=== PATIENT | female | born 1965 | race Caucasian/White ===

== ENCOUNTER 2021-08-09 08:26 | Day surgery (SDC) | payer OTHER, SELFPAY ==
[2021-08-02 19:20] VITALS: BMI 22.9
[2021-08-09 09:13] VITALS: BP 113/63; PULSE 85; RESP 16; TEMP 36.3; O2SAT 98
--- NOTE | 2021-08-09 09:55 | HO.ANESPROP2 ---
HPI - Anesthesia Eval Consult details Narrative: 56 F for colonoscopy [facility] Past Medical History Medical History (Updated 08/02/21 @ 19:18 by Hannah Ramirez, RN) Anxiety Functional capacity: independent ambulation Family History Family history of problems with anesthesia: No Surgical History Surgical History (Updated 08/02/21 @ 19:20 by Hannah Ramirez RN) History of kidney surgery Previous back surgery History of Problems with Anesthesia: Yes (Ponv ) Social History Social History Patient Tobacco Use Status: Never used Tobacco Use of substances other than those prescribed or required for medical reasons: No Are you DNR?: No Advance Directives: No Advance Directives Information Provided: No Advance Directives on File: No Recently lost weight without trying: No Nutrition Risks: No Nutritional Risk Patient : No Meds Allergies Allergy/AdvReac Type Severity Reaction Status Date / Time codeine [CODEINE] Allergy Unknown HEADACHE Verified 08/09/21 10:01 peanut Allergy Rash Verified 08/09/21 10:01 Active Medications: Current Medications Sodium Biphosphate/Sodium Phosphate (Sodium Phosphate,[place]-Dibasic 133 Ml Enema) 133 ml WA ONCE PRN PRN Reason: Poor Colonoscopy Prep Results Home Medications Medication Instructions Recorded Confirmed Last Taken Type alprazolam 0.5 mg tablet 1 tab PO ONCE PRN 08/02/21 08/02/21 Unknown History escitalopram oxalate 20 mg tablet 1 tab PO DAILY 08/02/21 08/02/21 Unknown History Exam Exam Date and Time: August 09, 2021 0955 Height,Weight and Vital Signs: Height 5 ft 5 in Weight 62.596 kg Last Vital Signs Temp 97.4 F 08/09/21 09:13 Pulse 85 08/09/21 09:13 Resp 16 08/09/21 09:13 BP 113/63 08/09/21 09:13 Pulse Ox 98 08/09/21 09:13 Airway Mallampati Class: III TM Dist: >3cm Neck ROM: Full Loose/Missing/Broken Teeth: Yes (Fillings ) Heart: rrr Lungs: bl breath sounds Assessment and Plan Assessment Anesthesia Assessment: Anesthesia Plan Discussed Final Anesthetic Review Family History of Problems with Anesthesia: No History of Problems with Anesthesia: Yes (Ponv ) NPO: Yes ASA Class: II Final Preanesthetic Review: Meds/Allgs Chart Reviewed, Consent Obtained/Reviewed and Anes Risks/Benef Reviewed Patient Risk: Intermediate Procedure Risk: Intermediate Anesthetic Plan Anesthetic Plan: MAC: Disposition: Standard PACU
[2021-08-09] MEDS: Lactated Ringers 1,000 ML 80 ML IVCONT (10:01)
--- NOTE | 2021-08-09 10:50 | P.BOP_ITS ---
Brief Operative Note Date of Service: 08/09/21 Pre-op diagnosis: Screening Post-op diagnosis: other (Diverticulosis) Procedure: Colonoscopy to the cecum and TI with biopsies Surgeon: Mario Cordero Anesthesia: MAC Was an Phone Triage Specialist used for this Procedure?: No Estimated blood loss (mL): 2.0 Pathology: other (A. Biopsies from area of Hepatic Flexure) Condition: stable Disposition: PACU
[2021-08-09 10:51] VITALS: BP 98/59; PULSE 69; RESP 17; TEMP 36.3; O2SAT 99
[2021-08-09 11:06] VITALS: BP 105/63; PULSE 63; RESP 18; TEMP 36.3; O2SAT 98
--- NOTE | 2021-08-09 11:34 | OP_ITS ---
SURGEON: Mario Cordero MD INDICATIONS: The patient presents for evaluation of colorectal cancer screening. Full consent was obtained from her for this, including risks of bleeding and perforation. PREOPERATIVE DIAGNOSIS: Colorectal cancer screening. POSTOPERATIVE DIAGNOSIS: PROCEDURE PERFORMED: Colonoscopy to cecum and terminal ileum with biopsies. ESTIMATED BLOOD LOSS: COMPLICATIONS: ANESTHESIA: Monitored anesthesia care. ASSISTANTS: SPECIMENS: POSTOPERATIVE DIAGNOSES: Colorectal cancer screening, mild sigmoid diverticulosis, small internal hemorrhoids, some nodularity in the area of hepatic flexure, which was biopsied to rule out any component of polyp. DESCRIPTION OF PROCEDURE: The patient was placed in the left lateral decubitus position. The digital rectal exam revealed no abnormalities. The Olympus video pediatric colonoscope was entered into the rectum and advanced easily to the cecum. Once in the cecum, I did identify normal-appearing cecal pouch with appendiceal orifice and a normal-appearing ileocecal valve. The terminal ileum was cannulated and appeared normal. The scope was withdrawn back in the colon. The entire cecum and ileocecal valve appeared normal. The scope was slowly withdrawn assessing all mucosal surfaces carefully. Preparation was excellent. In the area of the hepatic flexure on a fold, was some minimal area of nodularity, which I suspect was basically normal, but biopsies were obtained to rule out any component of polyp. There is no mass nor ulceration. I did not visualize any other mucosal abnormalities, colitis, nor angiodysplasia. There was a mild amount of sigmoid diverticulosis. In the rectum, scope was retroflexed visualizing small internal hemorrhoids, but no other pathology. The rectal mucosa appeared normal. Scope was straightened and withdrawn from the patient. She tolerated the procedure well and was returned to recovery area in stable condition. IMPRESSION: 1. Questionable nodularity on mucosa near hepatic flexure, status post biopsy. 2. Diverticulosis. 3. Internal hemorrhoids. PLAN: The results of biopsy will be checked. Assuming this is normal tissue, I would then recommend a repeat colonoscopy in 10 years for further screening. She will otherwise see me on a p.r.n. basis. MD DEBI Martino/AMANDA / [phone]
== END 2021-08-09 11:40 | disposition home or self-care (01) ==
PROVIDERS: PCP Internal Medicine; Visit Provider Internal Medicine
PROC: 0DJD8ZZ Inspection of Lower Intestinal Tract, Via Natural or Artificial Opening Endoscopic (ICD-10-PCS; CPT 45378; principal; 2021-08-09 09:40)
DX: Z12.11 Encounter for screening for malignant neoplasm of colon (principal); K57.30 Diverticulosis of large intestine without perforation or abscess without bleeding; K64.8 Other hemorrhoids; F41.1 Generalized anxiety disorder; Z79.899 Other long term (current) drug therapy; Z98.890 Other specified postprocedural states
CPT/HCPCS: 45380; 88305; J2250

== ENCOUNTER 2023-03-16 02:42 | Emergency (ER) | payer OTHER, SELFPAY ==
[2023-03-16 03:05] VITALS: BP 122/66; PULSE 88; RESP 16; TEMP 38.3; O2SAT 100; BMI 22.5
[2023-03-16 03:34] VITALS: BP 113/53; PULSE 71; RESP 15; TEMP 37.9; O2SAT 98
--- NOTE | 2023-03-16 04:15 | ED.FEVER ---
HPI - Fever General Chief Complaint: Fever Stated Complaint: blood infection? Time Seen by Provider: 03/16/23 03:44 Source: patient Mode of arrival: ambulatory Limitations: no limitations History of Present Illness HPI Narrative: A 58-year-old female came in for evaluation of fever, chills, generalized body ache, watery eyes, joints pain. No sick contacts, no recent exposure to a sick contact, no recent travel. Patient had a history of UTI so and the blood infection was concerned. No dysuria, no frequency urination, no hematuria. Related Data Home Medications Medication Instructions Recorded Confirmed alprazolam 0.5 mg tablet 1 tab PO ONCE PRN anxiety 08/02/21 08/02/21 escitalopram oxalate 20 mg tablet 1 tab PO DAILY 08/02/21 08/02/21 Previous Rx's Medication Instructions Recorded nirmatrelvir 300 mg (150 mg See Rx Instructions PO .COMPLEX 03/16/23 x2)-ritonavir 100 mg tablet,dose #30 ea pack (Paxlovid) Allergies Allergy/AdvReac Type Severity Reaction Status Date / Time codeine [CODEINE] Allergy Unknown HEADACHE Verified 07/02/22 11:18 peanut Allergy Rash Verified 07/02/22 11:18 Review of Systems Review of Systems: All other systems are reviewed and are negative Constitutional: Reports as per HPI and Reports no additional constitutional complaints Eyes: Reports as per HPI and Reports no additional eye complaints Reports system reviewed and no additional complaints, except as documented Cardiovascular: Reports as per HPI and Reports no additional cardiovascular complaints Respiratory: Reports as per HPI and Reports no additional respiratory complaints Gastrointestinal: Reports as per HPI and Reports no additional gastrointestinal complaints Genitourinary: Reports no additional female genitourinary complaints Musculoskeletal: Reports no additional musculoskeletal complaints Skin/Breast: Reports system reviewed and no additional complaints, except as docu Psychiatric: Reports no additional psychiatric complaints Endocrine: Reports no additional endocrine complaints Hematologic/Lymphatic: Reports no additional hematologic/lymphatic complaints Allergic/Immunologic: Reports no additional allergic/immunologic complaints Reports system reviewed and no additional complaints, except as documented and Reports Abnormal speech present [facility] Past Medical History Medical History Anxiety Surgical History Previous back surgery History of kidney surgery Social History Social History Patient Tobacco Use Status: Never used Tobacco Smoked in Last 30 Days: No Use of substances other than those prescribed or required for medical reasons: No Advance Directives: No Advance Directives Information Provided: No Physical Exam Vital Signs: Vital Signs: Last Vital Signs Temp 100.3 F 03/16/23 03:34 Pulse 71 03/16/23 03:34 Resp 15 03/16/23 03:34 BP 113/53 L 03/16/23 03:34 Pulse Ox 98 03/16/23 03:34 O2 Del Method Room Air 03/16/23 03:34 BMI result Body Mass Index 22.5 Vital signs have been reviewed and appear to be correct. Blood pressure elevated. Heart rate normal. Respiratory rate normal. Temperature normal. Oxygen saturation normal. Appearance: Alert. Oriented X3. No acute distress. Head: Normal external exam. Normocephalic. Atraumatic. No Kruse signs noted. No raccoon eyes noted Eyes: PERRLA. EOMI. Conjunctiva and sclera normal. Eyelids normal. ENT: TM's Normal. Pharynx normal. Uvula midline. Moist mucous membranes. No trismus noted. No drooling noted. No muffled voice noted. Neck: Normal inspection. Neck supple. FROM. No adenopathy. Thyroid Normal. No meningeal signs. No neck mass noted. CVS: Normal heart rate and rhythm. Heart sound normal. No murmurs noted. Pulses normal throughout. Respiratory: No respiratory distress. Painless inspiration. Breath sounds normal. No wheezes/rales/rhonchi noted. Chest nontender. No accessory muscle usage noted or decreased air movement noted. Abdomen: Soft and nontender. Bowel sounds normal in all 4 quadrants. No distention noted. No organomegaly noted. No visible injury noted. Back: No CVA tenderness. Full range of motion noted. Skin: Skin warm and dry. Normal skin color. Normal skin turgor. No rashes/lesions/lacerations noted. Extremities: No lower extremity edema. Extremities exhibit normal range of motion. Extremities nontender. Neuro: Oriented X 3. Cranial nerve exam: II-XII are grossly intact No motor deficit. No sensory deficit. Reflexes normal. Course Course Course Narrative: Body ache, fever, chills, fever, joint pain and body ache. COVID positive will start on Paxlovid. Medical Decision Making Differential Diagnosis Differential Diagnoses: The differential diagnosis associated with the presentation includes (Pneumonia, UTI, sepsis, viral upper respiratory infection, electrolyte abnormality, severe anemia.) Admission/Observation Consideration of admission/observation: Escalation of care including admission/observation considered Lab Data MDM Lab Attestation statement: I reviewed the patient's lab results. 03/16/23 03:35 03/16/23 03:35 Labs: Lab Results 03/16/23 03/16/23 Range/Units 03:24 03:35 WBC 5.5 (4.8-10.8) X10*3/uL RBC 3.92 L (4.20-5.50) X10*6/uL Hgb 12.4 (12.0-16.0) g/dl Hct 35.7 L (37.0-47.0) % MCV 91.1 (80.0-98.0) fL MCH 31.6 (27.0-33.0) pg MCHC 34.7 (31.0-35.0) g/dl RDW 12.2 (11.0-16.0) % Plt Count 272 (160-400) X10*3/uL MPV 9.3 L (9.4-12.3) fL Immature Gran % (Auto) 0.2 (0.0-0.4) % Neut % (Auto) 88.6 H (45-73) % Lymph % (Auto) 4.3 L (20-40) % [place] % (Auto) 6.0 (2-11) % Eos % (Auto) 0.5 (0-4) % Baso % (Auto) 0.4 (0-2) % Lymph # (Auto) 0.2 L (1.2-4.9) X10*3/uL [place] # (Auto) 0.3 (0.1-1.2) X10*3/uL Eos # (Auto) 0.0 (0.0-0.4) X10*3/uL Baso # (Auto) 0.0 (0.0-0.2) X10*3/uL Abs Immat Gran (auto) 0.01 (0.00-0.03) X10*3/uL Absolute Neuts (auto) 4.9 (2.0-8.3) x10*3/uL Absolute Nucleated RBC 0.000 (0.0-0.012) X10*3/uL Nucleated RBC % (auto) 0.0 (0.0-0.2) /100WBC Sodium 141 (135-145) mmol/L Potassium 4.3 (3.3-5.1) mmol/L Chloride 104 (96-108) mmol/L Carbon Dioxide 26 (22-29) mmol/L Anion Gap 15 (12-20) BUN 13 (9-16) mg/dL Creatinine 1.01 (0.5-1.4) mg/dL Estim Creat Clear Calc 53.3 Estimated GFR 56 Random Glucose 104 (60-115) mg/dL Lactic Acid 0.9 (0.5-2.0) mmol/L Calcium 10.0 (8.4-10.2) mg/dL Total Bilirubin 0.3 (0.0-1.0) mg/dL AST 27 (5-31) U/L ALT 15 (0-31) U/L Alkaline Phosphatase 54 (39-117) U/L Total Protein 7.4 (6.5-8.0) g/dL Albumin 4.3 (3.5-5.0) g/dL COVID-19 (ABHISHEK) Positive A (Negative) COVID-19 Clin Com See Note Independent Interpretation I performed an independent interpretation of an: Plain X-Ray (Chest: No acute intrathoracic pathology.) Radiology Impression Discussion of test interpretation with radiology: I have reviewed the radiologist's reading. Discharge Plan Discharge Clinical Impression: COVID-19 virus infection Patient Disposition: Home, Self-Care Instructions: COVID-19 (Coronavirus Disease 2019) (ED) Additional Instructions: Quarantine yourself for the next 5 days, drink plenty of fluid, where a face mask at all times, leave a social distance, frequent handwashing, use Tylenol 500 mg tablet if needed for fever. Prescriptions: New Paxlovid 300 mg (150 mg x 2)-100 mg tablets,dose pack See Rx Instructions .ROUTE .COMPLEX Qty: 30 0RF Rx Instructions: take TWO 150 mg tablets of nirmatrelvir with ONE 100 mg tablet of ritonavir twice daily for 5 days No Action alprazolam 0.5 mg tablet 1 tab PO ONCE PRN (Reason: anxiety) escitalopram oxalate 20 mg tablet 1 tab PO DAILY Stand Alone Forms: Work/School Release
[2023-03-16 05:58] VITALS: BP 102/50; PULSE 73; RESP 15; TEMP 37.8; O2SAT 96
[2023-03-16 06:31] VITALS: TEMP 37.7
== END 2023-03-16 06:57 | disposition home or self-care (01) ==
PROVIDERS: Emergency Provider Emergency Medicine
DX: U07.1 COVID-19 (principal); R50.9 Fever, unspecified; R05.9 Cough, unspecified; M79.10 Myalgia, unspecified site; Z79.899 Other long term (current) drug therapy; Z87.440 Personal history of urinary (tract) infections
CPT/HCPCS: 36415; 71045; 80053; 81001; 83605; 85025; 87040; 87086; 87635; 99283; 99285